=== PATIENT | female | born 1975 | race African-American/Black ===

== ENCOUNTER 2018-09-23 04:49 | Inpatient (IN) ==
[2018-09-23] MEDS ORDERED: REGLAN ONE (10:13)
[2018-09-23] MEDS ORDERED: PEPCID ONE (10:13)
[2018-09-23] MEDS ORDERED: LR 1,000 ML ONE (10:13)
[2018-09-23] MEDS ORDERED: ENTEREG ONE (10:13)
[2018-09-23] MEDS ORDERED: MEFOXIN 2 GM/NS 2 GM/50 ML IVPB ONE (10:14)
[2018-09-23] MEDS ORDERED: XYLOCAINE-MPF 2% ONE (10:40)
[2018-09-23] MEDS ORDERED: QUELICIN (DOSE) ONE (10:40)
[2018-09-23] MEDS ORDERED: ZOFRAN ONE ×2 (10:40→12:39)
[2018-09-23] MEDS ORDERED: DIPRIVAN 1% ONE (10:40)
[2018-09-23] MEDS ORDERED: FENTANYL ONE (10:40)
[2018-09-23] MEDS ORDERED: SODIUM CHLORIDE 0.9% 10 ML ONE ×2 (10:40→11:34)
[2018-09-23] MEDS ORDERED: MARCAINE 0.5% ONE (11:34)
[2018-09-23] MEDS ORDERED: EXPAREL 1.3% ONE (11:35)
[2018-09-23] MEDS ORDERED: DECADRON ONE (12:39)
[2018-09-23] MEDS ORDERED: MORPHINE ONE (12:48)
[2018-09-23 13:29] LABS: URINE SOURCE CATH
[2018-09-23 13:36] LABS: BILIRUBIN URINE NEGATIVE (NEGATIVE); BLOOD URINE NEGATIVE (NEGATIVE); COLOR YELLOW; GLUCOSE URINE NEGATIVE (NEGATIVE); KETONE URINE NEGATIVE (NEGATIVE); LEUKOCYTES URINE NEGATIVE (NEGATIVE); NITRITE URINE NEGATIVE (NEGATIVE); PH URINE 5.5; PROTEIN URINE NEGATIVE (NEGATIVE); SP GRAVITY URINE 1.001; TURBIDITY URINE CLEAR (CLEAR); UROBILINOGEN URINE NORMAL (NORMAL)
[2018-09-23 13:37] LABS: UR EPITHELIAL CELLS <10 /HPF (<10); URINE BACTERIA NEGATIVE /HPF; URINE RBC <10 /HPF (<10); URINE WBC <10 /HPF (<10)
[2018-09-23] MEDS ORDERED: ROBINUL ONE (15:00)
[2018-09-23] MEDS ORDERED: TORADOL ONE (15:18)
--- NOTE | 2018-09-23 15:55 | OPERATIVE NOTE ---
PROCEDURE DATE: 09/23/2018 PREOPERATIVE DIAGNOSES: 1. History of perforated diverticulitis. 2. No longer needed colostomy. POSTOP DIAGNOSIS: 1. History of perforated diverticulitis. 2. No longer needed colostomy. 3. Dense adhesions. PROCEDURES PERFORMED: 1. Exploratory laparotomy. 2. Lysis of adhesions. 3. Small bowel resection. 4. Open takedown of end colostomy with hand-sewn colorectal anastomosis. SURGEON: Henry Beck MD. RADIOLOGY TECH: Dr. Walsh. Dr. Walsh assisted with entirety of the case. ANESTHESIA: General endotracheal. INTRAOPERATIVE FINDINGS: Dense adhesions with small bowel plastered up against the ostomy site, the midline incision and down her pelvis. COMPLICATIONS: None at time of this dictation. EBL: 125 mL. SPECIMENS REMOVED: Small bowel and colon. BRIEF HISTORY: 43-year-old female well known to me who over 4 months ago had a Omar procedure for perforated diverticulitis. She wanted to have it reversed. The risks, benefits, alternatives were discussed. Risks including but not limited to bleeding, infection, risk of anastomotic leak, risk of perforation, risk of needing further ostomy, risk of hernia, discussed with the patient. All questions answered. DESCRIPTION OF PROCEDURE: After informed consent was obtained patient brought to the operative theater, transferred op table placed supine position. General endotracheal anesthesia was then performed without complication. Anesthesia then performed a TAP block without complication. We then removed the previous ostomy. I did a [id number] stitch in the ostomy to close it. We then prepped and draped her abdomen in sterile fashion after placing her in lithotomy. After the formal time-out we made a standard midline incision through her old incision to enter into the abdomen. There was a dense amount of adhesions. There was a unavoidable serosal tear noted to the small bowel given how its close proximity to the incision and his ostomy. It was unavoidable taking down the ostomy. We mobilized the small bowel completely, did a small bowel resection approximately 4 cm in vivo and had to staple [id number] functional end-to-end anastomosis. We closed the mesenteric defect. We then proceeded to make elliptical incision around the ostomy at the skin carried all way down to the fascia. We then were able to free the ostomy up circumferentially from its place in the skin and through the fascia brought back through the abdomen. We were able to identify the rectum. The previous stitches were still in place. It was densely adherent to the posterior wall of the uterus. We were able to free it up. After we had done this we decided that the length of the bowel were sufficient to do a hand- sewn anastomosis. We resected some of the colostomy back to healthy tissue and some of the rectum down to healthy tissue. We then did a 2 layer hand-sewn anastomosis with good results. We then tested under water with hydropneumatic pressure with no leak noted. We irrigated out the abdomen copiously until the suction fluid was clear. We then closed the fascial defect of the colostomy in 2 layers using #1 Vicryl from anterior and posterior approach. We then closed the abdomen with a running loop PDS. We then loosely closed the skin and placed Betadine-soaked pa in the colostomy site. The patient tolerated procedure well, transferred back to recovery room in stable condition. cc: MD ROSAMARIA Rudd
[2018-09-23] MEDS ORDERED: D5 1/2 NS + KCL 20 MEQ 1,000 ML ONE (15:59)
[2018-09-23] MEDS: DILAUDID ONE ×3 (16:02→17:06)
[2018-09-23] MEDS: MEFOXIN 2 GM/NS 2 GM/50 ML IVPB IV SCH (18:00)
[2018-09-23] MEDS: OFIRMEV 1000 MG/ISOTONIC SOLN 1,000 MG/100 ML BOTTLE IV SCH ×2 (18:02→22:28)
[2018-09-23] MEDS: MORPHINE IV PRN (22:28)
[2018-09-23] MEDS: HEPARIN SUBQ SCH (22:28)
[2018-09-24] MEDS: MEFOXIN 2 GM/NS 2 GM/50 ML IVPB IV SCH ×3 (00:23→11:50)
[2018-09-24] MEDS: NORCO-10 PO PRN ×4 (01:02→20:29)
[2018-09-24] MEDS: OFIRMEV 1000 MG/ISOTONIC SOLN 1,000 MG/100 ML BOTTLE IV SCH ×2 (05:40→11:49)
[2018-09-24] MEDS: HEPARIN SUBQ SCH ×3 (05:41→20:20)
--- NOTE | 2018-09-24 05:58 | GENERAL SURGERY PROGRESS NOTE ---
DATE: 09/24/2018 SUBJECTIVE: Patient seems to be doing okay. Her pain seems relatively well controlled. She is not sick to her stomach. She has not passed any gas but she is tolerating her clear liquids. OBJECTIVE: Vital Signs: The patient is currently afebrile. She does have a mild tachycardia in the 115s. Blood pressure stable. General Examination: No acute distress. Cardiovascular: Mild tachycardia. Lungs: Grossly clear. Abdomen: Soft, appropriately tender. Some bowel sounds auscultated. Incision with dressing in place. ASSESSMENT AND PLAN: A 43-year-old, postoperative day #1 from a colostomy takedown with small bowel resection. Postoperative state. At this time, we will continue resuscitation and monitor, and await return of bowel function. We will keep her on a clear liquid diet. She needs to mobilize today. We have got her on heparin and we will add Protonix for gastrointestinal prophylaxis. We will keep her on her current diet until she passes flatus and keep her Goncalves catheter in until tomorrow. cc: Henry Beck MD
[2018-09-24] MEDS: MORPHINE IV PRN ×5 (06:16→22:57)
[2018-09-24] MEDS: PROTONIX PO SCH (06:16)
[2018-09-24] MEDS: PERIDEX MT SCH ×2 (08:59→20:20)
[2018-09-24] MEDS: ENTEREG PO SCH ×2 (08:59→20:20)
[2018-09-24] MEDS ORDERED: TYLENOL PO PRN (16:13)
[2018-09-24] MEDS ORDERED: TUMS PO ONE ×2 (17:54→18:15)
[2018-09-24] MEDS: D5 1/2 NS + KCL 20 MEQ 1,000 ML IV SCH (18:09)
[2018-09-24] MEDS: DUONEB (A & A) INH PRN (20:12)
[2018-09-24] MEDS: TUMS PO PRN (20:57)
[2018-09-25] MEDS: NORCO-10 PO PRN ×5 (00:52→21:30)
[2018-09-25] MEDS: ZOFRAN IV PRN ×3 (01:04→10:02)
[2018-09-25] MEDS ORDERED: LR 1,000 ML IV ONE (05:29)
[2018-09-25] MEDS: HEPARIN SUBQ SCH ×3 (05:32→21:20)
[2018-09-25] MEDS: PROTONIX PO SCH ×2 (05:32→06:42)
[2018-09-25] MEDS: MORPHINE IV PRN ×2 (05:33→09:41)
--- NOTE | 2018-09-25 05:48 | GENERAL SURGERY PROGRESS NOTE ---
DATE: 09/25/2018 SUBJECTIVE: The patient has a little bit of nausea and a little bit of abdominal discomfort, what sounds like almost gas pains. OBJECTIVE: Vital Signs: Patient is currently afebrile. She does have a low tachycardia in the 120s. Blood pressure is stable. O2 saturation okay. General: No acute distress, resting. Cardiovascular: Some mild tachycardia. Lungs: Grossly clear. Abdomen: Soft, appropriately tender. No peritoneal signs. ASSESSMENT AND PLAN: A 43-year-old, currently postoperative day #2 from colostomy takedown with small bowel resection. Postoperative state. At this time, we will give her a L bolus of LR given her tachycardia. Will continue on her clear liquid diet. She is having a little bit of nausea, so will monitor that. When she gets over her nausea we will consider advancing her diet. She has not passed any gas so we are still awaiting return of bowel function but we will monitor closely. cc: Henry Beck MD
[2018-09-25] MEDS: DUONEB (A & A) INH PRN (08:09)
[2018-09-25] MEDS: PERIDEX MT SCH ×2 (08:21→21:20)
[2018-09-25] MEDS: TUMS PO PRN ×4 (08:21→21:30)
[2018-09-25] MEDS: ENTEREG PO SCH ×2 (08:21→21:20)
[2018-09-25] MEDS: D5 1/2 NS + KCL 20 MEQ 1,000 ML IV SCH ×2 (09:41→21:21)
[2018-09-25] MEDS ORDERED: VANCOMYCIN 1 GM/NS 1 GM/250 ML IVPB IV ONE (21:50)
[2018-09-26] MEDS: NORCO-10 PO PRN ×4 (03:41→20:46)
[2018-09-26] MEDS: HEPARIN SUBQ SCH ×3 (03:41→20:46)
[2018-09-26] MEDS ORDERED: LR 1,000 ML IV ONE (05:32)
--- NOTE | 2018-09-26 05:54 | GENERAL SURGERY PROGRESS NOTE ---
DATE: 09/26/2018 SUBJECTIVE: The patient is feeling better this morning, less nausea. She has not passed any gas but she has good bowel sounds. The only main complaint is abdominal discomfort. OBJECTIVE: Vital Signs: The patient is currently afebrile. She does have a little tachycardia in the 120s. It did stabilize after her bolus yesterday. Otherwise, her blood pressure and O2 saturations have been okay. General Examination: No acute distress. Cardiovascular: Some mild tachycardia. Lungs: Grossly clear. Abdomen: Soft, appropriately tender. No peritoneal signs. Dressing removed. Incision is healing well. Bowel sounds auscultated. ASSESSMENT AND PLAN: A 43-year-old, currently postoperative day #3 from colostomy takedown and small bowel resection. Postoperative state. At this time, we will give her another liter bolus of lactated Ringer's. We will continue to monitor her. We will advance her to a full liquid diet. We need to encourage mobilization with her. We will await return of bowel function. cc: Henry Beck MD
[2018-09-26] MEDS: MORPHINE IV PRN ×5 (05:57→22:56)
[2018-09-26] MEDS: PROTONIX PO SCH (06:28)
[2018-09-26] MEDS: PERIDEX MT SCH ×2 (09:45→20:46)
[2018-09-26] MEDS: ENTEREG PO SCH ×2 (09:45→20:46)
[2018-09-26] MEDS: TUMS PO PRN (22:13)
[2018-09-27] MEDS: HEPARIN SUBQ SCH ×3 (05:32→21:45)
[2018-09-27] MEDS: NORCO-10 PO PRN ×5 (05:32→21:45)
[2018-09-27] MEDS: PROTONIX PO SCH ×2 (05:32→08:27)
--- NOTE | 2018-09-27 07:36 | GENERAL SURGERY PROGRESS NOTE ---
DATE: 09/27/2018 SUBJECTIVE: Patient doing okay. She has not passed any gas but she is not sick to her stomach. She tolerated her full liquid diet. She has not had a bowel movement yet. OBJECTIVE: Vital Signs: Patient is currently afebrile. Her vital signs are stable. Her tachycardia seemed improved, now it is only 110s. General: No acute distress. Cardiovascular: Some very mild tachycardia. Lungs: Grossly clear. Abdomen: Soft, appropriately tender. Dressing in place. Some bowel sounds auscultated. ASSESSMENT: A 43-year-old, currently postoperative day #4 from a colostomy takedown and small- bowel resection. PLAN: Postoperative state. At this time, we will advance her to a GI soft diet. We will continue to monitor. She is on Protonix. She is on heparin. She does have SCDs. We have her on Entereg. We will just await return of bowel function. My partners will follow over the weekend. cc: Henry Beck MD
[2018-09-27] MEDS: ENTEREG PO SCH ×2 (09:55→21:46)
[2018-09-27] MEDS: PERIDEX MT SCH ×2 (09:55→21:46)
[2018-09-27] MEDS: MORPHINE IV PRN ×3 (11:13→23:58)
[2018-09-27] MEDS: ZOFRAN IV PRN ×2 (21:45→23:58)
[2018-09-28] MEDS: MORPHINE IV PRN ×2 (04:26→09:41)
[2018-09-28] MEDS: HEPARIN SUBQ SCH (04:27)
[2018-09-28] MEDS: NORCO-10 PO PRN ×2 (05:19→10:36)
[2018-09-28] MEDS: PROTONIX PO SCH ×2 (05:20→06:15)
[2018-09-28 07:36] VITALS: BP 119/80
[2018-09-28] MEDS: PERIDEX MT SCH (09:32)
[2018-09-28] MEDS: ENTEREG PO SCH (09:32)
[2018-09-28] MEDS: DUONEB (A & A) INH PRN (09:53)
--- NOTE | 2018-09-28 15:10 | GENERAL SURGERY PROGRESS NOTE ---
DATE: 09/28/2018 SUBJECTIVE: The patient is doing well. No significant abdominal pain, nausea, or vomiting. She is eating food, passing gas and has had bowel movements. She is walking the halls as well. OBJECTIVE: She is afebrile. Vital signs are stable.General: She is awake, alert, oriented x3. No acute distress. Gastrointestinal: Soft, nondistended. Minimal tenderness. Incisional dressings clean and dry. LABORATORY DATA: None today. ASSESSMENT AND PLAN: A 43-year-old female status post colostomy reversal with small-bowel resection. She is making good progress. We will discharge her home today. She will follow up with Dr. Beck in 1 week. Instructions were given. cc: MD Henry Gutierres MD
--- NOTE | 2018-10-01 23:32 | DISCHARGE SUMMARY ---
ADMISSION DATE: 09/23/2018 DISCHARGE DATE: 09/28/2018 ADMITTING DIAGNOSIS: Status post Omar's procedure for perforated diverticulitis and no longer needed colostomy. DISCHARGE DIAGNOSIS: Status post takedown of colostomy. ADMITTING PHYSICIAN: Henry Beck MD. CONSULTATIONS: None. PROCEDURES: On 09/23/2018 patient underwent takedown of colostomy with small-bowel resection. BRIEF HISTORY AND COURSE OF STAY: Patient is a 43-year-old female who several months ago I did a Omar's procedure for perforated diverticulitis. She came in to have this ostomy reversed. She underwent previously described procedure, which she tolerated well. Her postoperative course was not particularly complicated. She did have a little bit of postoperative ileus, but she improved. By postoperative day 5, she was up and ambulating, tolerating her GI soft diet, having bowel movements, passing gas, and pain controlled; therefore, it was felt that she would be safe to be discharged home. Arrangements were made. DISCHARGE CONDITION: Stable. DISPOSITION: Home. FOLLOW-UP INSTRUCTIONS: Patient told to follow up with me in 1 to 2 weeks. cc: Henry Beck MD
== END 2018-09-28 11:09 | disposition home or self-care (01) | DRG 331 ==
LOC: SURHOLD 04:49 → 4N 13:39
PROVIDERS: ADMIT Surgery; ATTEND Surgery
CPT/HCPCS: 81001; 88307; 94640; 94761; 94762; 94799; 97116; 97162; 97530; A9270; C9290; J0131; J0330; J0694; J1100; J1170; J1644; J1885; J2270; J2405; J3010; J3480; J7120; S0020